=== PATIENT | female | born 1960 | race African-American/Black ===

== ENCOUNTER 2019-06-06 15:28 | Outpatient (CLI) | payer MEDICARE, MEDICAID, SELFPAY ==
--- NOTE | ~2019-06-06 | XR_ITS ---
EXAMINATION: XR chest 2V DATE: 06/06/2019 16:13 INDICATION: Flulike symptoms, cough TECHNIQUE: PA and lateral views of the chest are obtained. COMPARISON: None available FINDINGS: There are minimal airspace opacities of the right lower lobe. There is no pleural effusion or pneumothorax. The cardiomediastinal silhouette is normal. There is moderate thoracic spondylosis. IMPRESSION: 1. Minimal airspace opacity of the right lower lobe, consistent with atelectasis versus pneumonia. Reviewed, dictated and finalized at location A. IMPRESSION: 1. Minimal airspace opacity of the right lower lobe, consistent with atelectasi s versus pneumonia.
== END 2019-06-06 15:29 | disposition home or self-care (01) ==
PROVIDERS: PCP Family Medicine
DX: R68.89 Other general symptoms and signs (principal); R91.8 Other nonspecific abnormal finding of lung field
CPT/HCPCS: 71046